=== PATIENT | female | born 1980 ===

== ENCOUNTER 2019-10-05 01:53 | Inpatient (IN) ==
[2019-10-05] MEDS ORDERED: Mag Hydrox/Al Hydrox/Simeth 30 ML UDC PO PRN (04:32)
[2019-10-05] MEDS ORDERED: *HR* LORazepam 2 MG/ML VIAL IM PRN (04:32)
[2019-10-05] MEDS ORDERED: MOM Conc 10 ML UD.LIQ PO PRN (04:32)
[2019-10-05] MEDS ORDERED: *HR* LORazepam 1 MG TABLET PO PRN (04:32)
[2019-10-05] MEDS ORDERED: Haloperidol Lactate 5 MG/ML VIAL IM PRN (04:32)
[2019-10-05] MEDS ORDERED: Acetaminophen 325 MG TABLET PO PRN (04:43)
[2019-10-05] MEDS: Vitamin B Complex/Vit C/Vit E 1 EACH TABLET PO SCH (08:50)
[2019-10-05] MEDS: Nicotine 21 MG PATCH.TD24 TD SCH (17:34)
[2019-10-05] MEDS: hydrOXYzine pamoate 25 MG CAPSULE PO PRN (20:39)
[2019-10-06] MEDS: Vitamin B Complex/Vit C/Vit E 1 EACH TABLET PO SCH (08:55)
[2019-10-06] MEDS: Cholecalciferol (D-3) 1,000 UNIT (25MCG) TABLET PO SCH (09:28)
[2019-10-06] MEDS: hydroCHLOROthiazide 25 MG TABLET PO SCH (09:28)
[2019-10-06] MEDS: Loratadine 10 MG TABLET PO SCH (09:28)
[2019-10-06] MEDS: Nicotine 21 MG PATCH.TD24 TD SCH (16:58)
[2019-10-06] MEDS: hydrOXYzine pamoate 25 MG CAPSULE PO PRN (21:24)
[2019-10-07] MEDS: Vitamin B Complex/Vit C/Vit E 1 EACH TABLET PO SCH (08:20)
[2019-10-07] MEDS: Loratadine 10 MG TABLET PO SCH (08:20)
[2019-10-07] MEDS: Cholecalciferol (D-3) 1,000 UNIT (25MCG) TABLET PO SCH (08:21)
[2019-10-07] MEDS: hydroCHLOROthiazide 25 MG TABLET PO SCH (08:21)
[2019-10-07 08:27] VITALS: BP 127/78
== END 2019-10-07 11:00 | disposition home or self-care (01) | DRG 885 ==
LOC: EMEROOARM 01:53 → 1ANU 01:53 → SUATTDRO 04:14 → 1ANU 04:32
PROVIDERS: ADMIT Psychiatry & Neurology Psychiatry; ATTEND Psychiatry & Neurology Psychiatry